=== PATIENT | male | born 1975 | race Caucasian/White ===

== ENCOUNTER → 2022-01-26 | Outpatient (CLI) | payer OTHER | END | disposition home or self-care (01) | LOC: LAB 14:44 → LAB SHORT 14:44 | DX: I10 Essential (primary) hypertension (principal) | CPT/HCPCS: 82043 ==

== ENCOUNTER 2022-09-23 10:09 | Day surgery (SDC) | payer OTHER ==
[~2022-09-23] VITALS: Ht 188 cm; Wt 135.0 kg
[~2022-09-23 10:09] MED LIST: OMEP20ER PO
[2022-09-23] MEDS ORDERED: ALBU90OI (10:26)
[2022-09-23] MEDS ORDERED: HYDPAM25 (10:26)
[2022-09-23] MEDS ORDERED: PANT40 (10:27)
--- NOTE | 2022-09-23 12:02 | NUR ---
09/23/22 1202 Keiry Nguyễn 4% ATOMIZED LIDOCAINE ADMINISTERED TO BACK OF THROAT PER DR. SILVA.
[2022-09-23 12:39] VITALS: BP 128/73
== END 2022-09-23 12:38 | disposition home or self-care (01) ==
LOC: ORSCSDS 10:09
PROVIDERS: Internal Medicine Gastroenterology
PROC: 0DB68ZX Excision of Stomach, Via Natural or Artificial Opening Endoscopic, Diagnostic (ICD-10-PCS; principal; 2022-09-23 11:30)
DX: R13.10 Dysphagia, unspecified (principal); R10.11 Right upper quadrant pain; K31.7 Polyp of stomach and duodenum; K63.5 Polyp of colon; Z98.84 Bariatric surgery status; G47.33 Obstructive sleep apnea (adult) (pediatric); J45.909 Unspecified asthma, uncomplicated; E66.9 Obesity, unspecified; Z68.38 Body mass index [BMI] 38.0-38.9, adult; Z79.899 Other long term (current) drug therapy
CPT/HCPCS: 88305; 88341; 88342; J2001; J2704; J3010; J7120